=== PATIENT | male | born 1955 | race Caucasian/White ===

== ENCOUNTER 2017-10-21 11:16 | Day surgery (SDC) | payer OTHER ==
--- NOTE | 2017-10-20 15:34 | GHP ---
[f rep st] PREOP HISTORY AND PHYSICAL DATE OF ADMISSION: 10/21/2017 PLANNED DATE OF SURGERY: 10/21/2017 CHIEF COMPLAINT: Left ankle and left forefoot pain. HISTORY OF PRESENT ILLNESS: Patient is a 61-year-old male with history of progressive left ankle and forefoot pain. His ambulatory status has been limited secondary to his symptoms. PAST MEDICAL HISTORY: Positive for previous left total knee infection. MEDICATIONS: Include Keflex, fluticasone, Jublia, naproxen, tramadol, and Zyrtec. ALLERGIES: He lists no drug allergies. PAST SURGICAL HISTORY: Positive for total knee arthroplasty, tonsillectomy, shoulder arthroscopy, wr ist surgery, and hernia repair. SOCIAL HISTORY: Negative for tobacco use. FAMILY HISTORY: Noncontributory. PHYSICAL EXAMINATION: GENERAL: Overall, appearing in good health. In no acute distress. HEENT: H ead is normocephalic. Pupils equal, round, reactive to light. Extraocular eye movements intact. NE CK: Supple. No JVD or lymphadenopathy. CHEST: Clear to auscultation. HEART: Regular rate and rh ythm. No murmurs or gallops. ABDOMEN: Soft, nontender, nondistended. No organomegaly. GENITAL, R ECTAL, BREASTS: Exam deferred. EXTREMITIES: Diffuse swelling about his left ankle. He is tender an teriorly with diminished range of motion. Examination of his forefoot reveals significant hallux colin us deformity with varus deviation of his 2nd and 3rd toes. ASSESSMENT: 1. Left ankle arthrosis. 2. Left hallux rigidus/hallux varus. 3. Left 2nd and 3rd metatarsophalangeal subluxation. PLAN: The patient is scheduled to undergo a left total ankle arthroplasty, 1st MTP arthrodesis, and 2nd and 3rd toe corrections. /[id number]/MODL
[~2017-10-21 11:16] MED LIST: CLINDAMYCIN 900 MG/DEXTROSE 50 ML IV ONE
[2017-10-21] MEDS ORDERED: BUPIVACAINE 0.5% 30 ML SDV ONE (11:46)
[2017-10-21] MEDS ORDERED: LIDOCAINE 1% 2 ML INJ ID PRN (12:08)
[2017-10-21] MEDS ORDERED: LR 1,000 ML IV ONE (12:08)
[2017-10-21] MEDS ORDERED: PROPOFOL/EMULSION 500 MG/50 ML BOTTLE IV ONE ×2 (12:12→14:27)
[2017-10-21] MEDS ORDERED: fentaNYL 250 MCG/5 ML INJ ONE (12:12)
--- NOTE | 2017-10-21 12:19 | PDANEPAE ---
ANE History of Present Illness 61 yo for l taa ANE Past Medical History - Cardiovascular History Hx Hypertension: No Hx Arrhythmias: No Hx Chest Pain: No Hx Coronary Artery / Peripheral Vascular Disease: No Hx CHF / Valvular Disease: No Hx Palpitations: No - Pulmonary History Hx COPD: No Hx Asthma/Reactive Airway Disease: No Hx Recent Upper Respiratory Infection: No Hx Oxygen in Use at Home: No Hx Sleep Apnea: No Sleep Apnea Screening Result - Last Documented: Negative - Neurologic History Hx Cerebrovascular Accident: No Hx Seizures: No Hx Dementia: No - Endocrine History Hx Diabetes: No - Renal History Hx Renal Disorders: No - Liver History Hx Hepatic Disorders: No - Neurological & Psychiatric Hx Hx Neurological and Psychiatric Disorders: No Neurological / Psychiatric History Comment: OA -neck - Cancer History Hx Cancer: Yes Cancer History Comment: BASAL CELL EYELID - Congenital Disorder History Hx Congenital Disorders: No - GI History Hx Gastrointestinal Disorders: No Gastrointestinal History Comment: HEMORRHOIDS - Other Health History Other Health History: sinus drainage. Prophylactic Antibx due to hx of septic L knee-under Dr Bacon's care. - Chronic Pain History Chronic Pain: Yes (GEN JOINTS DJD) - Surgical History Prior Surgeries: L total knee. I and D septic L total knee 07-18-15. TONSILLECTOMY. R FOOT X5. R KNEE REPLACEMENT. L SHOULDER RTC. WRIST SURG ANE Review of Systems Review of Systems: - Exercise capacity METS (RN): 4 METS ANE Patient History - Allergies Allergies/Adverse Reactions: SEASONAL Allergy (Intermediate, Uncoded 05/08/12 15:31) ITCHY EYES, SNEEZY - Home Medications Home Medications: Calcium Carbonate [Oyster Shell Calcium 500 mg (*)] 500 mg PO DAILY 06/15/15 [ Last Taken 10/14/17] Cetirizine [ZyrTEC 10 mg (*)] 10 mg PO DAILY 06/15/15 [Last Taken 10/14/17] Cholecalciferol Vit D3 [Vitamin D3 2000 units] 2,000 units PO DAILY 06/15/15 [ Last Taken 10/14/17] Fluticasone Nasal [Flonase Nasal [place]] 1 sprays EACHNARE DAILY PRN 06/15/15 [ Last Taken 10/14/17] Multivitamins [Multivitamin (*)] 1 tab PO DAILY 06/15/15 [Last Taken 10/14/17] Naproxen 500 mg PO BID 06/15/15 [Last Taken 10/14/17] Declo-3 Fatty Acids [Fish Oil 1000 mg (*)] 1,000 mg PO DAILY 06/15/15 [Last Taken 10/14/17] traMADol [Ultram 50 mg (*)] 50 mg PO DAILY PRN 06/15/15 [Last Taken 10/19/17] Melatonin [Melatonin 3 MG (*)] 3 mg PO HS 07/18/15 [Last Taken 10/20/17] Keflex 09/23/17 [Last Taken 10/21/17] - Smoking Hx Smoking Status: Never smoked - Family Anes Hx Family Hx Anesthesia Complications: NEG ANE Labs/Vital Signs - Vital Signs Height: 5 ft 11 in Weight: 94.347 kg ANE Physical Exam - Airway Neck exam: FROM Mallampati Score: Class 2 Mouth exam: normal dental/mouth exam - Pulmonary Pulmonary: no respiratory distress - Cardiovascular Cardiovascular: regular rate and rhythym - ASA Status ASA Status: II ANE Anesthesia Plan Anesthesia Plan: general endotracheal anesthesia Regional Anesthesia: continuous NB
[2017-10-21] MEDS ORDERED: MIDAZOLAM 2 MG/2 ML VIAL IVP ONE (12:20)
[2017-10-21 12:32] VITALS: PULSE 65
[2017-10-21] MEDS ORDERED: CLINDAMYCIN 900 MG/DEXTROSE 50 ML IV ONE (12:45)
--- NOTE | 2017-10-21 12:45 | POSTOPPROG ---
Post Op Note Date of Operation: 10/21/17 Surgeon: Mikael Elias Refinery Operator [employer]: [employer] Anesthesia: GET(General Endotracheal) Pre-op Diagnosis: L ankle arthrosis, hallux rigidus, 2/3 hammertoe Post-op Diagnosis: same Procedure: L TAA, 1st MTP arthrodesis, 2/3 hammertoe correction Inf/Abcess present in the surg proc area at time of surgery?: No EBL: 50-100
[2017-10-21] MEDS ORDERED: ROPIVACAINE 0.2% 550 MG in WATER FOR INJECTION,STERILE 275 ML, PUMP SET 1 EA NB SCH (13:30)
[2017-10-21] MEDS ORDERED: NALOXONE HCL 0.4 MG/ML INJ IVP PRN (15:22)
[2017-10-21] MEDS ORDERED: ONDANSETRON 4 MG/2 ML VIAL IVP PRN (15:22)
[2017-10-21] MEDS ORDERED: HYDROmorphONE/DILAUDID 1 MG/ML INJ IVP PRN (15:22)
[2017-10-21] MEDS ORDERED: ALBUTEROL 3 ML DEYVIAL IH PRN (15:22)
[2017-10-21] MEDS ORDERED: HYDROCODONE/APAP 5/325 TAB PO PRN (15:22)
[2017-10-21] MEDS ORDERED: OXYCODONE/APAP 5/325 TAB PO PRN (15:22)
[2017-10-21] MEDS ORDERED: fentaNYL 100 MCG/2 ML INJ IVP PRN (15:22)
--- NOTE | 2017-10-21 15:52 | POSTANESTH ---
Post Anesthetic Evaluation Cardiovascular Status: Normal, Stable Respiratory Status: Normal, Stable Level of Consciousness/Mental Status: Can Participate in Eval Pain Control: Adequate, Prn Tx Ordered Nausea/Vomiting Control: Adequate, Prn Tx Ordered Complications Possibly Related to Anesthesia: None Noted
[2017-10-21 16:13] VITALS: RESP 19
[2017-10-21 17:46] VITALS: BP 134/84; O2SAT 95
[2017-10-21 18:04] VITALS: TEMP 97.7
--- NOTE | 2017-10-22 04:00 | GOP ---
[f rep st] OPERATIVE REPORT DATE OF OPERATION: 10/21/2017 SURGEON: Mikael Elias MD ANESTHESIA: General plus indwelling popliteal block performed by the anesthesiologist at my request for postoperative pain management. PREOPERATIVE DIAGNOSIS: 1. Left ankle arthrosis. 2. Left hallux rigidus. 3. Left second and third MTP subluxation. 4. Left second and third hammertoe deformity. POSTOPERATIVE DIAGNOSIS: 1. Left ankle arthrosis. 2. Left hallux rigidus. 3. Left second and third MTP subluxation. 4. Left second and third hammertoe deformity. PROCEDURE PERFORMED: 1. Left implant total ankle arthroplasty. 2. Left first MTP arthrodesis. 3. Left second and third MTP capsulotomy and extensor lengthening. 4. Left second and third hammertoe corrections (partial phalangectomy). 5. Intraoperative use of fluoroscopy. FINDINGS: ESTIMATED BLOOD LOSS: Minimal. INDICATIONS: Patient is a 61-year-old with history of progressive ankle and forefoot pain. Clinical ly and radiographically he was noted to have advanced ankle arthrosis, advanced hallux rigidus and se cond and third toe deformities. Based on his persistence of symptoms refractory to nonoperative viri tment, he was interested in pursuing operative treatment. From an operative standpoint, after a thor ough discussion regarding treatment options for his ankle including arthrodesis and total ankle arthr oplasty, the patient elected to pursue a total ankle arthroplasty. He acknowledged he understood the potential risks of the operation, including, but not limited to bleeding, infection, neurovascular d amage, loss of limb and limb function, implant failure requiring revision, removal arthrod esis or possible amputation and anesthetic risks. Relative to his toes, he acknowledged potential ri sks including malunion, nonunion, need for hardware removal, recurrence of deformity, loss of vascula r supply to the toes and anesthetic risks. He acknowledged he understood the potential risks, planne d procedure, and postoperative plan well, and had all questions answered prior to the surgery. He ga ve his consent for the operative procedure. DESCRIPTION OF PROCEDURE: Patient was brought in the operating room where IV antibiotics were admini stered. He was placed in a supine position where general anesthetic was administered. Prior to jeannette g brought in the operating room, he had an indwelling popliteal block performed by the anesthesiologi at my request for postoperative pain management. A tourniquet was placed on the left thigh, bump underneath the left hip and shoulder and left lower extremity was prepped and draped in standard ster ile fashion. After marking the incision and Joseph wrap exsanguination tourniquet was inflated to 250. Attention was initially directed towards the ankle. Anterior approach to the ankle was utilized for exposure. Skin and subcutaneous tissue were sharply incised. The anterior approach was utilized fo r exposure. The extensor retinaculum was incised in line with the skin incision taking care to avoid damage to the medial branch of the superficial peroneal nerve. The interval between the tibialis an terior and extensor hallucis longus was utilized for exposure. The capsule was incised and reflected medially and laterally. Hypertrophic synovitis was sharply debrided. Utilizing a chisel, anterior osteophytes were removed from the distal tibia. A cutting guide (size 3) tibial cutting block from [facility] total ankle was applied. Correction for length, rotation, varus and valgus alignm ent and aligning the sagittal plane were confirmed both clinically and fluoroscopically prior to pinn ing the cutting jig into place. The medial holes were drilled and utilizing a saw after protecting t he medial and lateral gutters a transverse distal tibial cut was made. The cutting guide was removed and cuts were completed. Utilizing a rongeur, the cut bone portions of the tibia were removed witho ut difficulty. The talar dome cutting guide was applied and after distraction through the cutting ji g and pinning the cutting guide into place, the anterior dome cut was performed with a saw. The dist al talus cutting block was then applied and under fluoroscopic guidance position confirmed. This was pinned into place. The posterior chamfer cut was made with a saw. The anterior chamfer cuts on the talus were made with a milling device. Sizing in a medial and lateral direction was confirmed befor e placing the cutting guide in place. The talar keel pegs were drilled. A size [address] a[address] and found to have excellent fit, both clinically and fluoroscopically. The measurement of the t ibia confirmed a 3X length. This was placed with polyethylene inserts. After placing the 8 mm insert favorable stability with excellent range of motion was achieved. The tibial keel cuts were made wit h the drill with the trial in place. Definitive size 3X tibial and size 3 talar components were plac ed coating the surface with platelet rich plasma. An 8 mm polyethylene was placed. Fluoroscopic vie ws confirmed favorable implant positioning. The ankle was taken through a range of motion and found to have excellent range of motion and stability. The tourniquet was deflated. Attention was directe d towards closure. The deep tissue was closed with 3-0 Vicryl suture in interrupted fashion. Subcut aneous tissue closed with 3-0 Vicryl suture in interrupted fashion. Skin closed with 4-0 nylon inter rupted vertical mattress sutures. After Joseph wrap exsanguination tourniquet was reinflated and attention was directed towards the forefo ot. A longitudinal incision was made along the dorsal aspect of the great toe MTP joint. Skin and s ubcutaneous tissue were sharply incised. Sharp dissection was carried down to the capsule and the ca psular flaps were reflected medially and laterally. Remnants of articular surface were debrided with a chisel and rongeur. In preparation for arthrodesis, subchondral bone was drilled multiple times w ith a 2.0 mm drill bit and further roughened with a chisel. After provisional pinning the MTP joint with Timo wires definitive fixation was accomplished with 4.0 mm cortical screw placed in lag fa shion from the medial aspect of the metatarsal and to the proximal phalanx and two 2.7 mm cortical sc rews placed in lag fashion from the dorsal aspect to the proximal on the first metatarsal and to the plantar aspect of the proximal phalanx and medial aspect of the great toe proximal phalanx and the fi rst metatarsal. Fluoroscopic views confirmed favorable arthrodesis and hardware positions. Attention was then directed towards the second and third toes. Each was addressed in identical fashi on. A longitudinal incision was made along the dorsal aspect of the toe. Sharp dissection was jaziel ed down on the extensor tendon. The extensor tendon was longitudinally split and lengthened in a Z-t ype fashion. The MTP joint was released dorsally. Collateral ligaments were released with tenotomy scissors medially and laterally. Utilizing a saw, the distal aspect of the proximal phalanx was loan geeta. A 1.6 mm Timo wire was placed from the middle phalanx out the tip of the toe and then back through the proximal phalanx and across the MTP joint with the joint held in a properly reduced posi tion. The extensor tendon was repaired with 4-0 Vicryl suture. Attention was directed towards closure. The tourniquet was deflated. The toes regained stable capil courtney refill. The subcutaneous tissue was closed with 3-0 Vicryl suture in interrupted fashion. Skin was closed with 4-0 nylon interrupted sutures. The wounds were dressed with sterile Adaptic, 4 x 4, and Webril, and the leg was placed in a below-knee splint. Patient tolerated the procedure well and was taken to the recovery room, extubated in stable condition postoperatively. All sponge, needle, and instrument counts were reported as being correct. DRAINS: None. COMPLICATIONS: None. PLAN: The patient will be discharged home, nonweightbearing on his operative extremity. /[id number]/MODL
== END 2017-10-21 18:00 | disposition home or self-care (01) ==
LOC: FSGY 11:16
PROVIDERS: ATTEND Orthopaedic Surgery Foot and Ankle Surgery
PROC: 0SGQ04Z Fusion of Left Toe Phalangeal Joint with Internal Fixation Device, Open Approach (ICD-10-PCS; principal; 2017-10-21 12:30)
PROC: 0SNN0ZZ Release Left Metatarsal-Phalangeal Joint, Open Approach (ICD-10-PCS; principal; 2017-10-21 12:30)
PROC: 0SRG0JZ Replacement of Left Ankle Joint with Synthetic Substitute, Open Approach (ICD-10-PCS; principal; 2017-10-21 12:30)
PROC: 0SGN0ZZ (ICD-10-PCS; principal; 2017-10-21 12:30)
DX: M19.072 Primary osteoarthritis, left ankle and foot (principal); M20.22 Hallux rigidus, left foot; S93.145A Subluxation of metatarsophalangeal joint of left lesser toe(s), initial encounter; M20.42 Other hammer toe(s) (acquired), left foot
CPT/HCPCS: C1713; J2250; J2704; J2795; J3010

== ENCOUNTER → 2018-10-26 | Outpatient (CLI) | payer OTHER | LOC: FIMAGING 11:50 | PROVIDERS: ATTEND Orthopaedic Surgery Foot and Ankle Surgery | DX: T84.84XA Pain due to internal orthopedic prosthetic devices, implants and grafts, initial encounter (principal); Z96.662 Presence of left artificial ankle joint ==

== ENCOUNTER 2018-12-15 11:07 | Inpatient (IN) | payer OTHER ==
--- NOTE | 2018-12-14 08:41 | GHP ---
[f rep st] PREOP HISTORY AND PHYSICAL CHIEF COMPLAINT: Left ankle. HISTORY OF PRESENT ILLNESS: Patient is a 63-year-old who had previously undergone left total ankle arthroplasty. He had an initial uncomplicated postop period, but began developing progressive pain and swelling. PAST MEDICAL HISTORY: Positive for arthritis. PAST SURGICAL HISTORY: Positive for total ankle arthroplasty, wrist surgery, shoulder surgery, hernia repair, tonsillectomy. MEDICINES: Include Zyrtec and Keflex. ALLERGIES: He lists no drug allergies. SOCIAL HISTORY: Negative for tobacco use. PHYSICAL EXAMINATION: GENERAL: The patient is alert and oriented x3, in no acute distress. HEENT: Head is normocephalic. Pupils equal, round, reactive to light. Extraocular eye movements intact. CHEST: Clear to auscultation. HEART: Regular rate and rhythm. No murmurs or gallops. ABDOMEN: Soft, nontender, nondistended. No organomegaly. GENITALIA/RECTAL/BREAST: Exam was deferred. EXTREMITIES: Exam reveals moderate diffuse swelling and tenderness about the anterior aspect of his left ankle. IMAGING: AP and lateral radiographs of his ankle show evidence of subsidence of the tibial component of a total ankle. ASSESSMENT: Painful total ankle arthroplasty. PLAN: The patient is scheduled to undergo revision total ankle arthroplasty. /[id number]/MODL MTDD
[2018-12-15] MEDS ORDERED: LR 1,000 ML IV ONE (11:33)
[2018-12-15] MEDS ORDERED: BUPIVACAINE 0.5% 30 ML SDV ONE (11:45)
[2018-12-15] MEDS ORDERED: fentaNYL 100 MCG/2 ML INJ ONE ×4 (12:39→17:28)
--- NOTE | 2018-12-15 13:37 | PDANEPAE ---
ANE History of Present Illness ankle pain, here for revision of ankle joint on L ANE Past Medical History - Cardiovascular History Hx Hypertension: No Hx Arrhythmias: No Hx Chest Pain: No Hx Coronary Artery / Peripheral Vascular Disease: No Hx CHF / Valvular Disease: No Hx Palpitations: No - Pulmonary History Hx COPD: No Hx Asthma/Reactive Airway Disease: No Hx Recent Upper Respiratory Infection: No Hx Oxygen in Use at Home: No Hx Sleep Apnea: No Sleep Apnea Screening Result - Last Documented: Negative - Neurologic History Hx Cerebrovascular Accident: No Hx Seizures: No Hx Dementia: No - Endocrine History Hx Diabetes: No - Renal History Hx Renal Disorders: No - Liver History Hx Hepatic Disorders: No - Neurological & Psychiatric Hx Hx Neurological and Psychiatric Disorders: No Neurological / Psychiatric History Comment: OA -neck - Cancer History Hx Cancer: Yes Cancer History Comment: basal cell removed from eyelid - Congenital Disorder History Hx Congenital Disorders: No - GI History Hx Gastrointestinal Disorders: Yes Gastrointestinal History Comment: rectal polyp removed 10/2018 - Other Health History Other Health History: wears glasses. DJD - Chronic Pain History Chronic Pain: Yes (all joints) - Surgical History Prior Surgeries: 10/2018 rectal polyp removed with Dr. Gilmore. 10/21/17 left total ankle arthroplasty with Curt. 07/18/15 i&d of left knee with Paolo. left total knee with Paolo. 05/18/12 right total knee with Paolo. open umbilical hernia repair with Ana. 08/04/09 bilateral inguinal hernia repair with Ana. TONSILLECTOMY. R FOOT X5. L SHOULDER RTC. WRIST SURG ANE Review of Systems Review of Systems: - Exercise capacity METS (RN): 4 METS ANE Patient History - Allergies Allergies/Adverse Reactions: No Known Allergies Allergy (Verified 12/04/18 16:38) - Home Medications Home Medications: Cetirizine [ZyrTEC 10 mg (*)] 10 mg PO DAILY 06/15/15 [Last Taken 12/14/18] Cholecalciferol Vit D3 [Vitamin D3 2000 units] 2,000 units PO DAILY 06/15/15 [ Last Taken 12/07/18] Multivitamins [Multivitamin (*)] 1 tab PO DAILY 06/15/15 [Last Taken 12/07/18] Naproxen 500 mg PO BIDMEAL 06/15/15 [Last Taken 12/07/18] Abbot-3 Fatty Acids [Fish Oil 1000 mg (*)] 1,000 mg PO DAILY 06/15/15 [Last Taken 12/07/18] Melatonin [Melatonin 3 MG (*)] 3 mg PO HS 07/18/15 [Last Taken 12/07/18] Ascorbic Acid [Vitamin C 500 mg (*)] 1,000 mg PO DAILY 11/30/18 [Last Taken 02/19] Cephalexin [Keflex (*)] 500 mg PO BID 11/30/18 [Last Taken 12/15/18 06:30] Psyllium Husk (with Sugar) [Metamucil Packet] 1 tsp PO BID 11/30/18 [Last Taken 12/07/18] - NPO status NPO Since - Liquids (Date): 12/15/18 NPO Since - Liquids (Time): 07:00 NPO Since - Solids (Date): 12/14/18 NPO Since - Solids (Time): 21:00 - Smoking Hx Smoking Status: Never smoked - Family Anes Hx Family Hx Anesthesia Complications: none ANE Labs/Vital Signs - Vital Signs Blood Pressure: 132/88 Heart Rate: 79 Respiratory Rate: 16 O2 Sat (%): 95 Height: 180.34 cm Weight: 95.254 kg ANE Physical Exam - Airway Neck exam: FROM Mallampati Score: Class 1 Mouth exam: normal dental/mouth exam - Pulmonary Pulmonary: no respiratory distress, no rales or rhonchi - Cardiovascular Cardiovascular: regular rate and rhythym, no murmur, rub, or gallop - ASA Status ASA Status: II ANE Anesthesia Plan Anesthesia Plan: GA w LMA Regional Anesthesia: single shot NB, continuous NB Total IV Anesthesia: No
[2018-12-15] MEDS ORDERED: MIDAZOLAM 2 MG/2 ML VIAL IVP ONE (13:38)
--- NOTE | 2018-12-15 14:09 | PDHPUP ---
History & Physical Update H&P update statement: This history and physical update is based on an assessment of the patient which was completed after admission or registration (within 24 hours), but prior to the surgery/procedure. H&P update: H&P reviewed & patient examined, no change in patient's condition since H&P completed
[2018-12-15] MEDS ORDERED: ceFAZolin 2 GM/DEXTROSE 100 ML IV ONE (14:11)
[2018-12-15] MEDS ORDERED: CEFAZOLIN 2 GM/DEXTROSE/100 ML BAG IV ONE (14:13)
[2018-12-15] MEDS ORDERED: ONDANSETRON 4 MG/2 ML VIAL ONE (14:22)
[2018-12-15] MEDS ORDERED: LIDOCAINE 2% 100 MG/5 ML SYR ONE (14:22)
[2018-12-15] MEDS ORDERED: PROPOFOL 200 MG/20 ML VIAL ONE (14:22)
[2018-12-15] MEDS ORDERED: DEXAMETHASONE 4 MG/ML VIAL ONE (14:22)
[2018-12-15] MEDS ORDERED: PROPOFOL/EMULSION 500 MG/50 ML BOTTLE IV ONE (16:32)
[2018-12-15] MEDS ORDERED: METOCLOPRAMIDE 10 MG/2 ML VIAL IVP PRN (17:15)
[2018-12-15] MEDS ORDERED: HYDROmorphONE/DILAUDID 2 MG/ML INJ IVP PRN (17:15)
[2018-12-15] MEDS ORDERED: ONDANSETRON 4 MG/2 ML VIAL IVP PRN (17:15)
[2018-12-15] MEDS ORDERED: NALOXONE HCL 0.4 MG/ML INJ IVP PRN (17:15)
[2018-12-15] MEDS ORDERED: ALBUTEROL 3 ML DEYVIAL IH PRN (17:15)
[2018-12-15] MEDS ORDERED: LR 500 ML IV PRN (17:15)
[2018-12-15] MEDS ORDERED: fentaNYL 100 MCG/2 ML INJ IVP PRN (17:15)
[2018-12-15] MEDS ORDERED: HYDROCODONE/APAP 5/325 TAB PO PRN (17:15)
[2018-12-15] MEDS ORDERED: ACETAMINOPHEN 500 MG TAB PO PRN (17:15)
[2018-12-15] MEDS ORDERED: oxyCODONE IR 5 MG TAB PO PRN (17:15)
--- NOTE | 2018-12-15 17:15 | POSTANESTH ---
Post Anesthetic Evaluation Cardiovascular Status: Normal, Stable Respiratory Status: Normal, Stable Level of Consciousness/Mental Status: Can Participate in Eval, Alert and Oriented Pain Control: Adequate, Prn Tx Ordered Nausea/Vomiting Control: Adequate, Prn Tx Ordered Complications Possibly Related to Anesthesia: None Noted
--- NOTE | 2018-12-15 17:20 | POSTOPPROG ---
Post Op Note Date of Operation: 12/15/18 Surgeon: Mikael Elias Technical Writing Lead/Mgr: KATHIE Moulton Anesthesia: LMA Pre-op Diagnosis: Painful L TAA Post-op Diagnosis: Same Procedure: Revision L TAA Inf/Abcess present in the surg proc area at time of surgery?: No EBL: 50-100
[2018-12-15] MEDS ORDERED: D5W 1/2 NS W/ 20 KCl/L 1,000 ML IV SCH (17:30)
[2018-12-15] MEDS ORDERED: ROPIVACAINE 0.2% 1,100 MG in PUMP SET 1 EA NB SCH (17:30)
[2018-12-15] MEDS: PSYLLIUM METAMUCIL 1 PKT PO SCH (20:52)
[2018-12-15] MEDS ORDERED: MELATONIN 3 MG TAB PO SCH (21:00)
[2018-12-15] MEDS ORDERED: PSYLLIUM METAMUCIL 1 PKT PO SCH (21:00)
--- NOTE | 2018-12-15 21:02 | GOP ---
[f rep st] OPERATIVE REPORT DATE OF OPERATION: 12/15/2018 SURGEON: Mikael Elias MD ICT SALES ASSISTANT: Leonel Kennedy PA-C, who was necessary for the completion of the surgery. ANESTHESIA: General plus indwelling popliteal block performed by the anesthesiologist at my request for postoperative pain management. PREOPERATIVE DIAGNOSIS: Painful left total ankle arthroplasty. POSTOPERATIVE DIAGNOSIS: Painful left total ankle arthroplasty. PROCEDURE PERFORMED: 1. Revision left total ankle arthroplasty. 2. Removal of left total ankle arthroplasty implants. FINDINGS: SPECIMENS: Cultures and tissue sent to Pathology for frozen section. ESTIMATED BLOOD LOSS: Less than 100 mL. INDICATIONS: The patient is a 63-year-old who had previously undergone a total ankle arthroplasty. The patient had initial favorable radiographic results and an early favorable postop course. He bega n developing increasing pain, however. Radiographic evaluation revealed subsidence of his tibial com ponent and probable loosening or lack of ingrowth of his talar component. After a thorough discussio n with the patient regarding treatment options, including implant removal and arthrodesis, amputation or revision of his ankle arthroplasty, the patient elected to pursue revision. He acknowledged he u nderstood the potential risks including but not limited to bleeding, infection, neurovascular damage leading to loss of limb or limb function, implant failure requiring further revision, arthrodesis or amputation, pain or limitations, and anesthetic risks. He acknowledged he understood the potential r isks, planned procedure, and postoperative plan well, and had all questions answered prior to surgery . He gave his consent for the operative procedure. DESCRIPTION OF PROCEDURE: The patient was brought in the operating room after IV antibiotics were ad ministered in preop holding. Indwelling popliteal block was performed preop by the anesthesiologist at my request for postoperative pain management. General anesthetic was administered. A tourniquet was placed on the left thigh, bump underneath the left hip and shoulder. Left lower extremity was pr epped and draped in standard sterile fashion. After marking the incision and Joseph wrap exsanguination , tourniquet was inflated to 250. The previous anterior incision was utilized for exposure. Skin an d subcutaneous tissue were sharply incised. Sharp dissection was carried through the extensor retina culum. The interval between the extensor hallucis longus and tibialis anterior was utilized for expo sure taking care to avoid damage to the neurovascular bundle. Dissection was carried down to the cap sular level. Both extracapsular and intracapsular cultures were obtained. The soft tissue from the ankle capsule was sent to Pathology for frozen section. Subsequent report revealed no neutrophils or signs of any acute infection. The capsule was reflected medially and laterally. Fibrous tissue in the ankle joint was removed with a rongeur. After guide pins in the tibia and talus over the area of the proposed osteotomy sites, 5 mm saw blade was utilized to further "fine tune" the plafond cut, as well as make a flat tibialis anterior cut in appropriate direction. The cut bone portions were loan geeta with a rongeur. K-wires were then placed from the tibia and talus confirming the optimal positio n for the revision cuts. Utilizing a saw, a limited amount of bone was removed on the tibia and talu s creating a "flat top" talus and a tibial cut that was parallel to the joint surface correcting for the previous anterior subsidence. Intraoperative templating revealed that a size 1 talus and a size 2 tibia would optimally fit the ankle. After multiple templating attempts with the Naye ankle at [facility] (21 mm polyethylene) which proved unsuccessful, the stemmed tibial component with the ti bial base plate was chosen. Shortly thereafter this, the sizers were then placed. A size 1 tibial t ray with a size 2 tibial polyethylene and size 2 talar component with the stemmed component with a 10 mm tibial base plate were placed and found to have excellent fit. Definitive preparation was then p erformed. The talar component trial was pinned into place. Through this, the central keel cut was m andree with coring reamer. Drill holes and guide pins were placed in the tibial component to enable for cutting out the anterior bone required for the tibial fin placement. The cut bone portions were the n removed. The definitive tibial implant was impacted into the intramedullary canal after curetting out and chiseling out the necessary amount of bone in the intramedullary canal allowing for the keel placement. The talar component was then impacted into place. Both implants were found to have very favorable positioning fluoroscopically. A 21 mm polyethylene insert was then pushed into place. The ankle was taken through range of motion and found to have very favorable stability, as well as favor able range of motion. The tourniquet was deflated and attention was directed toward closure. The ex tensor retinaculum was closed with 2-0 Vicryl suture in interrupted fashion. Subcutaneous tissue tao sed with 3-0 Vicryl suture in interrupted fashion. Skin closed with 4-0 nylon interrupted sutures. The wounds were dressed with sterile Adaptic, 4 x 4 and Webril, and the leg was placed in a below-kne e splint. The patient tolerated the procedure well and was taken to the recovery room, extubated, in stable condition postoperatively. All sponge, needle, and instrument counts were reported as being correct. DRAINS: None. COMPLICATIONS: None. PLAN: The patient will be admitted for overnight observation. He will be nonweightbearing on his op erative extremity. /[id number]/MODL
[2018-12-15] MEDS: ceFAZolin 2 GM/DEXTROSE 100 ML IV SCH (22:05)
[2018-12-16] MEDS: oxyCODONE IR 5 MG TAB PO PRN ×2 (01:23→05:26)
[2018-12-16] MEDS: ceFAZolin 2 GM/DEXTROSE 100 ML IV SCH (05:27)
--- NOTE | 2018-12-16 05:58 | SOAPPROG ---
SOAP Progress Note Assessment/Plan: Assessment: S/P Revision TAA Pain tolerable summer po +U/O Splint intact, no D/C Toes with good cap refill Some numbness (block + pre-op neuropathy) Plan: OOB/PT D/C home 12/16/18 05:56 Objective: Vital Signs Temp Pulse Resp BP Pulse Ox 36.7 C 87 16 132/94 H 91 L 12/16/18 04:00 12/16/18 04:00 12/16/18 04:00 12/16/18 04:00 12/16/18 04:00 12/14/18 12/15/18 12/16/18 05:59 05:59 05:59 Intake Total 2250 Output Total 1730 Balance 520 ICD10 Worksheet Patient Problems: Problems Problem Status Onset History of arthroplasty of left knee Acute Osteoarthritis of ankle, left Acute Septic arthritis of knee Acute Arthritis of knee, left Chronic
[2018-12-16] MEDS ORDERED: MULTIVITAMINS 1 EACH TAB PO SCH (09:00)
[2018-12-16] MEDS ORDERED: ENOXAPARIN 40 MG/0.4 ML SYR SC SCH (09:00)
[2018-12-16] MEDS ORDERED: CHOLECALCIFEROL VIT D3 1,000 UNITS TAB PO SCH (09:00)
[2018-12-16] MEDS ORDERED: CETIRIZINE 10 MG TAB PO SCH (09:00)
[2018-12-16] MEDS ORDERED: OMEGA-3 FATTY ACIDS 1,000 MG CAP PO SCH (09:00)
[2018-12-16] MEDS ORDERED: ASCORBIC ACID 500 MG TAB PO SCH (09:00)
[2018-12-16] MEDS: PSYLLIUM METAMUCIL 1 PKT PO SCH (09:20)
--- NOTE | 2018-12-16 09:35 | PDMN ---
Medical Necessity Medical necessity: Pt meets inpt criteria per MD order and Musculoskeletal surgery GRG, L total ankle revision, [facility] IP only list, pre-authed for inpt. 63 y/ o w/progressive pain and swelling following L ankle surgery, admitted for L TAA revision and post-op care.
--- NOTE | 2018-12-16 11:23 | ASMTCMCOM ---
CM Note CM Note Notes: Pt had ankle revision, resides with spouse. PT rec outpatient. No CM d/c needs identified. Date Signed: 12/16/2018 11:22 AM Electronically Signed By:LENO Lopez
--- NOTE | 2018-12-16 11:24 | ASMTLACE ---
SANDRA Length of stay for Answers: 2 days current admission Acuity / Level of Answers: Yes Care: Did the patient have an inpatient admission? # of Emergency department Answers: 0 visits in the last 6 months Score: 5 Date Signed: 12/16/2018 11:23 AM Electronically Signed By:LENO Lopez
[2018-12-16 11:30] VITALS: BP 123/71
--- NOTE | 2018-12-22 08:41 | GDS ---
[f rep st] DISCHARGE SUMMARY ADMISSION DIAGNOSIS: Left ankle pain. HISTORY RELATIVE TO ADMISSION: The patient is a 63-year-old who had previously undergone left total ankle arthroplasty. The patient had evidence of loosening of the implant and presented for revision. HOSPITAL COURSE: The patient was admitted as a direct admit for a revision left total ankle arthropl asty. He was taken to the regular Medical/Surgical floor in stable condition postoperatively. His p ostop course unremarkable. Pain is controlled with nerve block predominantly. He was started on phy sical therapy and progressed satisfactorily. On postoperative day 1, he was in stable condition. Di scharged home as he was medically stable and had pain well controlled and was safe from the hip stand point. DISPOSITION: Discharge home nonweightbearing on his operative extremity. Followup will be in approx imately 1 week. /[id number]/MODL
== END 2018-12-16 13:43 | disposition home or self-care (01) | DRG 469 ==
LOC: F1N 11:07 → EDSTATUS 12:30 → F3N 18:41
PROVIDERS: ADMIT Orthopaedic Surgery Foot and Ankle Surgery; ATTEND Orthopaedic Surgery Foot and Ankle Surgery
DX: T84.84XA Pain due to internal orthopedic prosthetic devices, implants and grafts, initial encounter (principal); M25.572 Pain in left ankle and joints of left foot; Z96.653 Presence of artificial knee joint, bilateral; Z86.010 Personal history of colon polyps
CPT/HCPCS: 97162-GP; C1713; J0690; J1100; J1650; J2001; J2250; J2405; J2704; J2795; J3010